=== PATIENT | female | born 1960 | race Caucasian/White ===

== ENCOUNTER 2020-03-29 01:37 | Emergency (ER) | payer OTHER ==
[~2020-03-29] VITALS: Ht 162.6 cm; Wt 81.7 kg
[2020-03-29 01:37] VITALS: BP 115/78
--- NOTE | 2020-03-29 15:36 | EKG ---
[address] [place] [place] [address] ELECTROCARDIOGRAM REPORT Name: SUMAN WELLS Room #: DEP [facility]#: [id number] Admission: 03/29/20 Attend Phys: Discharge: 03/29/20 Date of : 56 Report #: [id number] [facility] ED Test Date: 2020-03-29 Test Time: 01:42:04 Pat Name: SUMAN WELLS Department: Room: Gender: F Education And Development Manager: VANNA : 1960 Requested By: Satish Rodriguez Order Number: [id number] MD: Jose Manuel Ashby Measurements Intervals [place] Rate: 77 P: 74 TN: 122 QRS: 54 QRSD: 108 T: 147 QT: 437 QTc: 495 Interpretive Statements Sinus rhythm Probable left atrial enlargement Probable anterolateral infarct, acute Abnormal T, consider ischemia, lateral leads ST elevation, consider inferior injury No previous ECG available for comparison Electronically Signed On 03-29-2020 15:36:34 COUNTER HELPER by Jose Manuel Ashby [email or web address] <ELECTRONICALLY SIGNED> By: Jose Manuel Ashby MD, [facility] 03/29/20 1536 D: 02/141 014 Jose Manuel Ashby MD, FACC /EPI
== END 2020-03-29 02:01 ==
LOC: ER 01:37 → EROBS 02:32
DX: I46.9 Cardiac arrest, cause unspecified (principal); I21.3 ST elevation (STEMI) myocardial infarction of unspecified site